=== PATIENT | male | born 1935 | race Caucasian/White ===

== ENCOUNTER 2022-09-21 12:34 | Outpatient (CLI) | payer MEDICARE ==
[2022-09-21 12:41] LABS: Hemoglobin 14.2 g/dL (14.0-18.0); Mean Corpuscular HGB CONC 31.3 g/dL (32.0-36.0); Mean Corpuscular Hemoglobin 28.8 pg (27.0-31.0); Mean Corpuscular Volume 91.9 fl (78.0-98.0); Mean Platelet Volume 8.3 fL (7.4-10.4); Platelet Count 293 10x3/uL (130-400); RBC Distribution Width 13.9 % (11.5-14.5); Red Blood Cell (RBC) Count 4.94 mill/uL (4.70-6.10); White Blood Cell (WBC) Count 8.5 10x3/uL (4.8-10.8)
[2022-09-21 13:09] LABS: Anion Gap 18 mmol/L (10-20); BUN (Urea Nitrogen) 17 mg/dL (8.4-25.7); Calc. Creatinine Clearance 0 mL/min (70-130); Calcium 9.6 mg/dL (7.8-10.44); Carbon Dioxide 28 mmol/L (23-31); Chloride 98 mmol/L (98-107); Estimated GFR 75; Glucose 125 mg/dL (83-110); Potassium 4.6 mmol/L (3.5-5.1); Sodium 139 mmol/L (136-145)
== END 2022-09-21 12:35 | disposition home or self-care (01) ==
LOC: BURMANOR 12:34
PROVIDERS: ATTEND Registered Nurse Community Health
DX: R09.89 Other specified symptoms and signs involving the circulatory and respiratory systems (principal)
CPT/HCPCS: 80048; 85027

== ENCOUNTER 2022-09-21 13:56 | Outpatient (CLI) | payer MEDICARE, BC | END 2022-09-21 13:57 | disposition home or self-care (01) | LOC: BURRAD 13:56 | PROVIDERS: ATTEND Registered Nurse Community Health | DX: R09.89 Other specified symptoms and signs involving the circulatory and respiratory systems (principal); J90 Pleural effusion, not elsewhere classified; J98.11 Atelectasis | CPT/HCPCS: 71046; 80048; 85027 ==

== ENCOUNTER 2022-10-02 13:30 | Outpatient (CLI) | payer MEDICARE ==
[2022-10-02 13:59] LABS: Hemoglobin 13.3 g/dL (14.0-18.0); Mean Corpuscular HGB CONC 30.8 g/dL (32.0-36.0); Mean Corpuscular Hemoglobin 28.9 pg (27.0-31.0); Mean Corpuscular Volume 93.7 fl (78.0-98.0); Mean Platelet Volume 7.3 fL (7.4-10.4); Platelet Count 253 10x3/uL (130-400); Red Blood Cell (RBC) Count 4.61 mill/uL (4.70-6.10); White Blood Cell (WBC) Count 9.4 10x3/uL (4.8-10.8)
[2022-10-02 17:17] LABS: Hemoglobin 13.3 g/dL (14.0-18.0); Mean Corpuscular HGB CONC 30.8 g/dL (32.0-36.0); Mean Corpuscular Hemoglobin 28.9 pg (27.0-31.0); Mean Corpuscular Volume 93.7 fl (78.0-98.0); Mean Platelet Volume 7.3 fL (7.4-10.4); Platelet Count 253 10x3/uL (130-400); Red Blood Cell (RBC) Count 4.61 mill/uL (4.70-6.10); White Blood Cell (WBC) Count 9.4 10x3/uL (4.8-10.8)
[2022-10-02 17:19] LABS: #Neutrophils 7.2 thou/uL (1.40-6.50); %Eosinophils 2.3 % (0.0-10.0); %Lymphocytes 14.3 % (21.0-51.0); %Monocytes 5.9 % (0.0-10.0); %Neutrophils 76.4 % (42.0-75.0)
[2022-10-02 17:20] LABS: #Basophils 0.1 thou/uL (0.0-0.2); #Eosinphils 0.2 thou/uL (0.0-0.7); #Monocytes 0.6 thou/uL (0.11-0.59)
[2022-10-02 17:21] LABS: #Lymphocytes 1.4 thou/uL (1.20-3.40)
[2022-10-02 17:28] LABS: Anion Gap 15 mmol/L (10-20); BUN (Urea Nitrogen) 19 mg/dL (8.4-25.7); Calc. Creatinine Clearance 0 mL/min (70-130); Calcium 8.9 mg/dL (7.8-10.44); Carbon Dioxide 26 mmol/L (23-31); Chloride 100 mmol/L (98-107); Estimated GFR 75; Glucose 105 mg/dL (83-110); Potassium 4.6 mmol/L (3.5-5.1); Sodium 136 mmol/L (136-145)
[2022-10-02 17:28] LABS: Bilirubin Negative (Negative); Blood, Urine Negative (Negative); Clarity Clear (Clear); Glucose, Urine (Dipstick) Negative (Negative); Ketone, Urine Negative (Negative); Leukocyte Negative (Negative); Nitrite Negative (Negative); Protein, Urine (Dipstick) Negative (Neg-Trace); Specific Gravity, Urine 1.025 (1.005-1.030); Urobilinogen 0.2 mg/dL (Less than 2); pH, Urine 6.5 (5.0-9.0)
== END 2022-10-02 13:31 | disposition home or self-care (01) ==
LOC: BURMANOR 13:30
PROVIDERS: ATTEND Registered Nurse Community Health
DX: R41.82 Altered mental status, unspecified (principal)
CPT/HCPCS: 80048; 81003; 83880; 85027; 87086

== ENCOUNTER 2022-10-15 12:24 | Outpatient (CLI) | payer MEDICARE ==
[2022-10-15 12:43] LABS: Anion Gap 13 mmol/L (10-20); BUN (Urea Nitrogen) 19 mg/dL (8.4-25.7); Calc. Creatinine Clearance 0 mL/min (70-130); Calcium 8.9 mg/dL (7.8-10.44); Carbon Dioxide 28 mmol/L (23-31); Chloride 99 mmol/L (98-107); Estimated GFR 84; Glucose 125 mg/dL (83-110); Potassium 4.4 mmol/L (3.5-5.1); Sodium 136 mmol/L (136-145)
== END 2022-10-15 12:25 | disposition home or self-care (01) ==
LOC: BURMANOR 12:24
PROVIDERS: ATTEND Registered Nurse Community Health
DX: R79.89 Other specified abnormal findings of blood chemistry (principal)
CPT/HCPCS: 80048; 83880

== ENCOUNTER 2022-10-27 16:23 | Outpatient (CLI) | payer MEDICARE, BC | END 2022-10-27 16:24 | disposition home or self-care (01) | LOC: BURRAD 16:23 | PROVIDERS: ATTEND Nurse Practitioner Family | DX: R09.89 Other specified symptoms and signs involving the circulatory and respiratory systems (principal); J10.1 Influenza due to other identified influenza virus with other respiratory manifestations; J90 Pleural effusion, not elsewhere classified | CPT/HCPCS: 71046; 87804 ==